=== PATIENT | female | born 1945 | race Caucasian/White ===

== ENCOUNTER 2017-03-14 08:28 | Inpatient (IN) | payer OTHER ==
[2017-01-27 13:22] VITALS: BMI 39.0
--- NOTE | 2017-01-27 14:03 | PAT Medication Instructions ---
Service Date Jan 27, 2017. Current Home Medication List Acetaminophen (Tylenol Arthritis Ext Rel), 650 MG PO Q8H PRN for Pain Acetaminophen/Diphenhydramine (Tylenol Pm), 1 TAB PO HS Alprazolam (Xanax), 0.5 MG PO PRN PRN for Anxiety Aspirin (Aspirin Ec), 81 MG PO QPM Atenolol (Tenormin), 100 MG PO QPM Diltiazem Hcl Ext Rel (Tiazac), 240 MG PO QPM Levalbuterol (Xopenex Hfa), 1 PUFF INH UD PRN for SOB/Wheezing Levothyroxine Sodium (Levothyroxine Sodium), 1 TAB PO DAILYBB Lisinopril (Zestril), 40 MG PO QPM Multivitamin (Multivitamin), 1 TAB PO QA Sertraline (Zoloft), 25 MG PO QPM Simvastatin (Zocor), 10 MG PO QPM Spironolactone (Aldactone), 12.5 MG PO QAM Warfarin Sod (Jantoven), 3 MG PO QPM Warfarin Sod (Jantoven), 2 MG PO QPM Medication Instructions For Your Scheduled Surgery - Check with surgeon/coumadin clinic for instructions: Warfarin Sod (Jantoven), 3 MG PO QPM Warfarin Sod (Jantoven), 2 MG PO QPM - Hold the following medications the morning of surgery: Multivitamin (Multivitamin), 1 TAB PO QA Spironolactone (Aldactone), 12.5 MG PO QAM - Take the following medications the morning of surgery with a sip of water: Levothyroxine Sodium (Levothyroxine Sodium), 1 TAB PO DAILYBB Levalbuterol (Xopenex Hfa), 1 PUFF INH UD PRN for SOB/Wheezing (if needed) Acetaminophen (Tylenol Arthritis Ext Rel), 650 MG PO Q8H PRN for Pain (if needed) Alprazolam (Xanax), 0.5 MG PO PRN PRN for Anxiety (if needed) - Hold the following medications as scheduled the night before surgery: Lisinopril (Zestril), 40 MG PO QPM - Take the following medications as scheduled the night before surgery: Sertraline (Zoloft), 25 MG PO QPM Simvastatin (Zocor), 10 MG PO QPM Levalbuterol (Xopenex Hfa), 1 PUFF INH UD PRN for SOB/Wheezing (if needed) Atenolol (Tenormin), 100 MG PO QPM Diltiazem Hcl Ext Rel (Tiazac), 240 MG PO QPM Acetaminophen (Tylenol Arthritis Ext Rel), 650 MG PO Q8H PRN for Pain (if needed) Acetaminophen/Diphenhydramine (Tylenol Pm), 1 TAB PO HS Alprazolam (Xanax), 0.5 MG PO PRN PRN for Anxiety (if needed) Aspirin (Aspirin Ec), 81 MG PO QPM If you have any questions please call us at [phone] or [phone] or [phone]
[2017-01-27 14:55] LABS: BASO % 0.2 %; BASO ABS # 0.01 K/uL (0-0.2); COMPLETE YES; EOS % 2.3 %; HEMATOCRIT 37.6 % (37-47); LYMPH % 25.2 %; LYMPH ABS # 1.34 K/uL (1.2-3.4); MEAN CORPUSCULAR HEMOGLOBIN 30.3 pg (25-34); MEAN CORPUSCULAR HGB CONC 33.2 g/dl (32-36); MEAN PLATELET VOLUME 9.6 fL (7.4-10.4); MONO % 7.1 %; NEUT % 65.2 %; PLATELET COUNT 202 K/uL (130-400); RED BLOOD COUNT 4.13 M/uL (4.2-5.4); WHITE BLOOD COUNT 5.32 K/uL (4.8-10.8)
[2017-01-27 15:05] LABS: INR 2.6 (0.9-1.1); PARTIAL THROMBOPLASTIN RATIO 1.7; PROTHROMBIN TIME (PATIENT) 28.8 SECONDS (9.0-12.0)
[2017-01-27 16:09] LABS: BUN/CREATININE RATIO 15.1 (10-20); C-REACTIVE PROTEIN 0.79 mg/dl (0-0.29); CALCIUM 10.2 mg/dl (8.5-10.1); CREATININE 1.2 mg/dl (0.60-1.20); POTASSIUM 4.7 mmol/L (3.5-5.1)
--- NOTE | 2017-03-10 19:40 | HISTORY & PHYSICAL EXAMINATION ---
DATE OF ADMISSION: 03/14/2017 CHIEF COMPLAINT: Right knee pain and discomfort. HISTORY OF PRESENT ILLNESS: This is a 71-year-old female who is now a year out from the left knee replacement. The left knee is doing well. She developed increased pain and progressive discomfort in her right knee. She has limited walking tolerance and limited by right knee only. She describes global pain. The more she walks, the more it hurts. It is really affecting her quality of life and ability to maintain an active lifestyle and she would like to have her right knee placed. Very happy with her left knee. PAST MEDICAL HISTORY: Significant for: 1. Atrial fibrillation on Coumadin. 2. Hypertension. 3. Hypothyroidism. 4. Asthma. 5. History of uterine cancer. 6. Elevated cholesterol. 7. Low back pain. 8. Obesity. PAST SURGICAL HISTORY: Include: 1. Left total knee replacement done in 03/15/2016. 2. Hysterectomy for uterine cancer. 3. Breast reduction. ALLERGIES: None. CURRENT MEDICINES: Include: 1. Synthroid 125 mcg a day. 2. Spironolactone 25 mg a day. 3. Tylenol Arthritis. 4. Multivitamin. 5. Fosamax. 6. Lisinopril 40 mg. 7. Zocor 10 mg. 8. Atenolol 100 mg a day. 9. Diltiazem 240 mg a day. 10. Coumadin 3 mg on Monday, Monday, Monday and and 2 mg on Monday, Monday, Monday. 11. Aspirin 81 mg a day. 12. Zoloft 25 mg 13. Tylenol PM for sleep. 14. Xanax 0.5 mg as needed for Anxiety. 15. Xopenex inhaler for wheezing. SOCIAL HISTORY: A 71-year-old female patient from [place]. Lives by herself. FAMILY HISTORY: Noncontributory. REVIEW OF SYSTEMS: Negative for diabetes. Denies any chest pain or shortness of breath. She does have chronic atrial fibrillation. On Coumadin. No other bleeding issues. She is followed by [facility]. REVIEW OF SYSTEMS: Significant for atrial fibrillation. No chest pain, no shortness of breath. No bleeding problems. She is on Coumadin. PHYSICAL EXAMINATION: GENERAL: Reveals a pleasant elderly female, looks to me in pretty good health. HEENT: Benign. NECK: Supple. No lymphadenopathy. LUNGS: Clear to auscultation. HEART: Regular rate and rhythm. ABDOMEN: Soft, nontender, nondistended. EXTREMITIES: Grossly neurovascularly intact except as follows. Examination of the right knee reveals the patient ambulates independently. She has got valgus alignment to her knee. Moderate soft tissue envelope. Range of motion is 0-120. No instability. X-RAYS: X-rays of the right knee revealed advanced lateral compartment DJD. She has complete loss of her lateral joint space. She has subchondral sclerosis. She has cystic changes in the tibial plateau. Diffuse osteopenia. She has got some chondrocalcinosis. ASSESSMENT: A 71-year-old female 1 year out from left knee replacement with advanced right knee degenerative joint disease. She would like to have her right knee replaced. PLAN: We will take her to the operating room and do a right total knee replacement. The risks and benefits of this procedure were explained to the patient including but not limited to DVT, PE, , infection, neurological injury, vascular injury, bleeding problem, pain, limited range of motion, stiffness, failure to relieve incomplete relief of symptoms, need for further surgery in the future, fracture, leg length inequality, nerve palsy, etc. The patient understands and desires to proceed. Informed consent was obtained. She does note to stop her Coumadin 5 days preop. We will need a stat PT and INR on the morning of surgery. She will hold her lisinopril the morning of surgery and take her atenolol. As far as discharge plans, she is hoping to be discharged to [facility]. She went to different facility last time but prefers [facility] I believe. [facility]
[~2017-03-14] VITALS: Ht 160 cm; Wt 100.5 kg
[2017-03-14] VITALS (8 sets, daily range): BP systolic 107–132; BP diastolic 67–79; PULSE 61–77; TEMP 36.2–36.7; O2SAT 94–100; Ht 160 cm; Wt 100.5 kg
[~2017-03-14 08:28] MED LIST: ACET1TAB84 PO; ACETAMINOPHEN 500 MG TAB PO SCH; ALPR-411 PO; ASPI81TA28 PO; ATEN-175 PO; BUPIVACAINE 0.25% 30 ML VIAL ONE; BUPIVACAINE 0.5 % 5 MG/1 ML PF 10ML VIAL ONE; BUPIVACAINE LIPOSOME 266 MG, BUPIVACAINE/EPINEPHRINE INJ 50 ML, SODIUM CHLORIDE 0.9% PF... INFIL SCH; CEFAZOLIN 2000 MG/60 ML D5W 60 ML IV SCH; DILT-115 PO; DIPH-437 PO; FAMOTIDINE 20 MG TAB PO SCH; FENTANYL CITRATE INJ 50 MCG/1 ML 2 ML VIAL ONE; GABAPENTIN 300 MG CAP PO SCH; LACTATED RINGER'S 1000ML 1,000 ML IV SCH; LACTATED RINGER'S 1000ML 500 ML IV ONE; LEVAAER2 INH; LEVO125T4 PO; LIDOCAINE HCL 2% 2 ML VIAL (20MG/ML) ONE; LISI40TA PO; METOCLOPRAMIDE HCL 10 MG TAB PO SCH; MIDAZOLAM HCL 1 MG/ML 2ML VIAL ONE; MULT-506 PO; ONDANSETRON INJ 2 MG/ML 2 ML VIAL ONE; PROPOFOL IV EMULSION 10 MG/ML 20 ML VIAL IV ONE; SCOPOLAMINE 1.5 MG TDSY TD SCH; SERT50TA PO; SIMV10TA2 PO; SPIR25TA PO; TRANEXAMIC ACID INJ 1,000 MG in SODIUM CHLORIDE 0.9% 100ML 100 ML IV SCH; WARF2TAB8 PO; WARF3TAB6 PO
[2017-03-14] MEDS ORDERED: HYDROmorphone INJ 1 MG/ML SYR IV PRN (09:30)
[2017-03-14] MEDS ORDERED: EpHEDrine SULFATE INJ 50 MG/ML AMP IV PRN (09:30)
[2017-03-14] MEDS ORDERED: FENTANYL CITRATE INJ 50 MCG/1 ML 2 ML VIAL IV PRN (09:30)
[2017-03-14] MEDS ORDERED: MEPERIDINE HCL 25 MG/ML CARP IV PRN (09:30)
[2017-03-14] MEDS ORDERED: LABETALOL HCL IV 5 MG/ML 20ML IV PRN (09:30)
[2017-03-14] MEDS ORDERED: ATROPINE SULFATE 0.1 MG/ML 5ML SYR IV PRN (09:30)
[2017-03-14] MEDS ORDERED: ONDANSETRON INJ 2 MG/ML 2 ML VIAL IV PRN ×2 (09:30→13:00)
[2017-03-14 09:47] LABS: INR 1.2 (0.9-1.1); PARTIAL THROMBOPLASTIN RATIO 1.2; PROTHROMBIN TIME (PATIENT) 12.9 SECONDS (9.0-12.0)
--- NOTE | 2017-03-14 10:49 | History & Physical Bridge Note ---
H&P Re-Evaluation Bridge Note: I have examined the patient, reviewed the History & Physical and in the interval since the performance of the History & Physical I have noted the following changes of clinical significance: No changes noted
[2017-03-14] MEDS ORDERED: BACITRACIN 50000 UNIT VIAL ONE (10:58)
[2017-03-14] MEDS ORDERED: BUPIVACAINE LIPOSOME 1/3% 266 MG/20 ML VIAL INFIL ONE (10:58)
[2017-03-14] MEDS ORDERED: SODIUM CHLORIDE 0.9% PF 50 ML VIAL ONE (10:58)
[2017-03-14] MEDS ORDERED: BUPIVACAINE/EPINEPHRINE 0.25% 1:200,000 30 ML VIAL ONE (10:58)
--- NOTE | 2017-03-14 12:53 | [facility] Post Operative Brief Note ---
Immediate Operative Summary Operative Date Mar 14, 2017. Pre-Operative Diagnosis Right knee degenerative joint disease Post-Operative Diagnosis Right knee degenerative joint disease Procedure(s) Performed Right total knee arthroplasty, cemented Surgeon Dr. Isidro [employer] Architect Surgeon(s) Bhavik Zhang PA-C Estimated Blood Loss 300 ml Findings Right Knee DJD Fluids (cc crystalloids) 1100 cc Specimens A: Right knee bone and tissue Drains None Anesthesia Spinal Complication(s) None Disposition Recovery Room / PACU
[2017-03-14] MEDS ORDERED: ALUMINUM/MAGNESIUM/SIMETH (MAALOX MAX) 30 ML UDC PO PRN (13:00)
[2017-03-14] MEDS ORDERED: METOCLOPRAMIDE HCL INJ 5 MG/ML 2 ML VIAL IV PRN (13:00)
[2017-03-14] MEDS ORDERED: BISACODYL 10 MG SUPP PR PRN (13:00)
[2017-03-14] MEDS ORDERED: MAGNESIUM HYDROXIDE SUSP 30 ML UDC PO PRN (13:00)
[2017-03-14] MEDS ORDERED: SILVER SULFADIAZINE 1% CR 50 GM JAR EXT PRN (13:00)
[2017-03-14] MEDS ORDERED: ZOLPIDEM TARTRATE 5 MG TAB PO PRN (13:00)
[2017-03-14] MEDS ORDERED: LEValbuterol HFA 15GM INHALER INH PRN (13:00)
[2017-03-14] MEDS ORDERED: HYDROmorphone INJ 0.5 MG/0.5 ML SYR IV PRN (13:00)
[2017-03-14] MEDS ORDERED: ALPRAZOLAM 0.5 MG TAB PO PRN (13:00)
--- NOTE | 2017-03-14 13:51 | DIAGNOSTIC IMAGING REPORT ---
TWO VIEWS RIGHT KNEE CLINICAL HISTORY: Postoperative examination. FINDINGS: AP and crosstable lateral portable views of the right knee are obtained. A right knee arthroplasty is in near anatomic alignment. There has been undersurface remodeling of the patella. No acute fracture is seen. There are expected postoperative changes around the knee including skin clips, a surgical drain, soft tissue edema, and subcutaneous gas. IMPRESSION: Expected postoperative changes status post right knee arthroplasty. No acute fracture is seen. Electronically signed by: Lam Merino M.D. 03/14/2017 1:50 PM Dictated Date/Time: 03/14/2017 1:49 PM
--- NOTE | 2017-03-14 14:03 | Anesthesiology Progress Note ---
Anesthesia Post Op Note Date & Time Mar 14, 2017 at 14:03 Vital Signs Pain Intensity: 0 Vital Signs Past 12 Hours Date Time Temp Pulse Resp B/P (MAP) Pulse Ox O2 Delivery O2 Flow Rate FiO2 03/14/17 13:40 55 16 107/57 99 Nasal Cannula 2 03/14/17 13:25 36.3 64 16 114/64 99 Nasal Cannula 2 03/14/17 13:15 68 16 95/55 99 Nasal Cannula 2 03/14/17 13:05 68 16 96/60 99 Nasal Cannula 2 03/14/17 12:55 36.4 68 16 83/53 99 Nasal Cannula 2 03/14/17 09:43 36.7 71 20 120/67 95 Room Air Notes Mental Status: alert / awake / arousable, participated in evaluation Pt Amnestic to Procedure: Yes Nausea / Vomiting: adequately controlled Pain: adequately controlled Airway Patency, RR, SpO2: stable & adequate BP & HR: stable & adequate Hydration State: stable & adequate Neuraxial Anesthesia: was administered, sensory block is resolving Anesthetic Complications: no major complications apparent
[2017-03-14] MEDS: D5W AND 1/2NSS + 20MEQ KCL 1,000 ML IV SCH (15:26)
[2017-03-14] MEDS: ACETAMINOPHEN 500 MG TAB PO SCH ×2 (15:27→21:24)
[2017-03-14] MEDS: KETOROLAC TROMETHAMINE 15 MG/ML VIAL IV. SCH ×2 (15:27→21:25)
[2017-03-14] MEDS ORDERED: WARFARIN SOD 5 MG TAB PO ONE (16:00)
[2017-03-14] MEDS: FERROUS GLUCONATE 324 MG TAB PO SCH (18:30)
[2017-03-14] MEDS: CEFAZOLIN IV 2,000 MG in DEXTROSE 5% 50ML 50 ML IV SCH (18:30)
[2017-03-14] MEDS ORDERED: TRANEXAMIC ACID INJ 1,000 MG in SODIUM CHLORIDE 0.9% 100ML 100 ML IV SCH (19:00)
[2017-03-14] MEDS: SIMVASTATIN 10 MG TAB PO SCH (21:21)
[2017-03-14] MEDS: SERTRALINE HCL 50 MG TAB PO SCH (21:21)
[2017-03-14] MEDS: LISINOPRIL 40 MG TAB PO SCH (21:22)
[2017-03-14] MEDS: DILTIAZEM HCL 120 MG EXT REL CAP PO SCH (21:22)
[2017-03-14] MEDS: DOCUSATE SODIUM 100 MG CAP PO SCH (21:23)
[2017-03-14] MEDS: SENNA 8.6 MG TAB PO SCH (21:23)
[2017-03-14] MEDS: ASPIRIN 81 MG ECTAB PO SCH (21:23)
[2017-03-14] MEDS ORDERED: FRRG PO (21:49)
[2017-03-14] MEDS ORDERED: ULT50X PO (21:49)
[2017-03-14] MEDS ORDERED: ACET-24 PO (21:49)
--- NOTE | 2017-03-14 21:52 | Discharge Instructions ---
Discharge Instructions Date of Service Mar 14, 2017. Admission Reason for Admission: Right Knee Degenerative Joint Disease Discharge Discharge Diagnosis / Problem: Right Knee Replacement Discharge Goals Goal(s): Decrease discomfort, Improve function, Increase independence, Improve disease control, Therapeutic intervention Activity Recommendations Activity Level: Assistance Required Therapies: Physical Therapy, Occupational Therapy Weightbearing Status: Right weightbearing . Additional Information Patient informed of condition: Yes Advance Directives: Yes DNR: No Level of Care: Skilled Communicable Disease: No Prognosis: Improving Instructions / Follow-Up Instructions / Follow-Up ACTIVITY RECOMMENDATIONS: Physical Therapy: * You will go to physical therapy three times each week for four to six weeks after your surgery in order to regain your knee range of motion and to retrain your knee to work properly. * It is just as important to make sure you are getting your knee perfectly straight as it is to regain your knee bend. * Taking a pain pill an hour before therapy can help you have a more productive and comfortable therapy session. Home Exercise: * You were shown a series of exercises (heel props, heel slides, etc.) in the hospital. Do these exercises three to four times each day including the exercises you were shown in physical therapy. Walking: * Get up and walk several times each day. For the first four weeks, try not to stand or walk for more than one hour at a time. If you do stand or walk for more than one hour, you will not hurt anything, but your knee and leg will likely swell. * As you feel comfortable, you may change from the walker or crutches to a cane and then to independent walking. MEDICATIONS: New Medicine: * You will likely be taking one or more of these medications: 1. Tramadol - A quick and shorter-acting pain medication. Take one to two tablets every four to six hours to lessen your pain. 2. Iron Sulfate - Take two times each day for the month after surgery to help you replace the blood lost during surgery. 3. Coumadin - Thins your blood to lessen the chance of forming a blood clot. The dose of this is different for each person and is based on your blood tests that are done every Monday and . * The most common side effects of pain medicine and iron are nausea and constipation. If nausea or constipation is too much of a problem or if you have any questions about your new medicines or doses, call [facility] at . We will try to help you manage these issues. VERY IMPORTANT TO READ AND REVIEW" Pain: * The immediate post-operative period after knee replacement surgery is often quite painful. * You are given a prescription for pain medicine. You should take it, as directed, when you need it, especially before physical therapy and before going to bed. Pain that interferes with sleep is very common and can last several months. * You will likely need pain medicine for the first four to six weeks. It will not stop all of the pain. The pain will lessen and as you feel better, you may change to milder pain medicine such as Tylenol. * The most common side effects of pain medicine are nausea and constipation, so don't take more than you need. SPECIAL CARE INSTRUCTIONS: TEDs/Elastic Stockings: * The white elastic stockings help limit swelling and prevent blood clots from forming in your legs. The more you wear them, the more they work. * Wear them for six weeks after knee replacement surgery and four weeks after partial knee replacement. Prevention of Infection: * Take antibiotics one hour before any dental cleaning, dental work, urological procedure, gastrointestinal procedure or any invasive surgery in order to prevent your new joint from getting infected. * You may get the antibiotics from the doctor performing the procedure or you may call our office at before and we will call in a prescription to the pharmacy of your choice. Things to Watch For: * Drainage from the incision site that occurs more than one week after your surgery. * Severely increased knee/leg pain or swelling. * Increased redness at the incision site. * Fever above 102 degrees Fahrenheit. * Unusual chest pain or shortness of breath. * Unusual pain or burning with urination. Call [facility] at with any of the above problems or if you have any questions about your medicines or recovery. FOLLOW UP VISIT: Make an appointment to see your doctor for approximately two weeks after surgery for a progress check and staple removal by calling the office at . Current Hospital Diet Patient's current hospital diet: Regular Diet Discharge Diet Recommended Diet: Regular Diet Procedures Procedures Performed: Right total knee arthroplasty, cemented Pending Studies Studies pending at discharge: no Medical Emergencies . Who to Call and When: Medical Emergencies: If at any time you feel your situation is an emergency, please call 911 immediately. . Non-Emergent Contact Non-Emergency issues call your: Surgeon . . "Provider Documentation" section prepared by Mic Isidro. . Core Measure Problem Core Measures: None
--- NOTE | 2017-03-14 22:46 | PROGRESS NOTE ---
DATE: 03/14/2017 SUBJECTIVE: A 71-year-old female postop from a right knee replacement. She is doing well. Not much pain at all yet. No chest pain or shortness of breath. Not feeling dizzy or lightheaded. OBJECTIVE: VITAL SIGNS: Temperature 36.4. Vital signs stable. PHYSICAL EXAMINATION: GENERAL: This is a pleasant elderly female. She is sitting up in bed, looks pretty comfortable. LUNGS: Clear to auscultation. HEART: Irregularly irregular rhythm. EXTREMITIES: Rate is normal. ABDOMEN: Soft, nontender, nondistended. EXTREMITIES: Grossly neurovascularly intact except as follows. Examination of the right leg reveals the leg to be well aligned. Dressing is clean, dry and intact. She can dorsiflex and plantarflex her foot appropriately. She is just starting to get the function back in her leg. She is neurologically intact. X-RAYS: X-rays of the right knee from recovery room reviewed. It shows a right cemented posterior stabilized total knee arthroplasty. Components looked to be in good position. No signs of problems. ASSESSMENT: A 71-year-old female postop from a right knee replacement, doing pretty well. Pain is controlled. She is neurologically intact. Nerve function is just returning. She does have a history of atrial fibrillation and on Coumadin. PLAN: 1. DVT prophylaxis including thigh high TEDs, SCDs. We will redose her on Coumadin. We will bolus her today and the goal will be to keep her INR between 2 and 3, but on the lower side. 2. PT, OT. Weightbearing as tolerated. Right total knee protocol. 3. Pain control, doing well with current pain regimen. We have to be careful to limit narcotic use due to side effects. 4. IV antibiotics x24 hours. 5. Disposition. Plan to discharge to a correction facility once adequately recovered. She may need a 3-night stay. She is hoping to go to [place], but has alternatives if that does not work out.
--- NOTE | 2017-03-14 23:26 | OPERATIVE REPORT ---
DATE OF OPERATION: 03/14/2017 SURGEON: Mic Isidro MD. SAFETY COMPLIANCE SPECIALIST: BRANT Elliott. PREOPERATIVE DIAGNOSIS: Right knee degenerative joint disease. POSTOPERATIVE DIAGNOSIS: Same. PROCEDURE PERFORMED: Right cemented posterior stabilized total knee arthroplasty. COMPLICATION: None. ESTIMATED BLOOD LOSS: 50 mL FLUID REPLACEMENT: 1100 mL crystalloid fluid replacement. TOURNIQUET TIME: 54 minutes at 300 mmHg. ANESTHESIA: Spinal with adductor canal block. DRAINS: None. SPECIMEN: Right knee sent for pathology. OPERATIVE INDICATIONS: The patient is a 71-year-old female who has had a long history of bilateral knee pain and discomfort. She has been through extensive conservative care. She underwent a left knee replacement a year ago with an excellent result. She elected to proceed with right total knee arthroplasty. OPERATIVE FINDINGS: Operative findings revealed advanced right knee DJD. She had grade 4 [id number] disease in all compartments, most severe on the lateral side. She had eburnation of the lateral femoral condyle and lateral tibial plateau. She had diffuse osteopenia on the medial side. Moderate size joint effusion. She had a valgus alignment to her knee. OPERATIVE IMPLANTS: Operative implants consisted of: 1. Biomet Vanguard size 65 right posterior stabilized femoral component. 2. Biomet size 71 tibial tray. 3. A 12 mm posterior stabilized polyethylene insert. 4. A 31 x 8 all poly patella. OPERATIVE PROCEDURE: The patient was taken to the operating room, identified and placed on the operating table in supine position. All contact areas were appropriately padded. IV antibiotics provided by anesthesia team. A spinal anesthetic and adductor canal block provided in the holding area. Regalado catheter was placed in sterile fashion. A right thigh tourniquet was then placed and the right lower extremity was then prepped and draped in the usual sterile fashion. The right leg was elevated and exsanguinated with Esmarch and tourniquet was placed at 300 mmHg. An anterior approach to the right knee was then performed through a longitudinal incision centered over the patella. Sharp dissection was carried out through the subcutaneous tissues down to the level of the extensor mechanism. A medial parapatellar arthrotomy incision was made. Some subperiosteal dissection was carried out medially. The fat pad was resected from beneath the patellar tendon. Lateral patellofemoral ligament was released. The patella was everted and knee was flexed. The osteophytes were taken off the distal femur. The ACL and PCL were then released from the distal femur and the tibia subluxated anteriorly. The external tibial alignment jig was then placed on the anterior face of the tibia and adjusted 12 mm medially. Proximal tibial cut was made to remove about 4-5 mm from the medial side. Tibia was then sized to a size 71. Attention was then drawn to the femur. Distal femur was entered with a sharp drill. Intramedullary canal was suctioned. A right 5-degree valgus cutting guide was placed. Distal femoral cutting block was pinned in place. Distal femoral cut was made to take an additional 3 mm of bone off the distal femur. The knee was brought out into full extension. The extension gap was equal, so I did not do a lateral release. The knee was flexed. The femur was then sized to a size 65. The AP cutting block was pinned parallel to the epicondylar axis which was 5 degrees of external rotation. The anterior cut, anterior chamfer cut, posterior cut, posterior chamfer cuts were made. Box cutting guide was placed and adjusted slightly lateral and the box cut was made. The knee was flexed. The remnants of the medial and lateral menisci were excised. The osteophytes were taken off the posterior aspect of the femur. Trial femoral component was placed. The tibial tray was pinned in maximum external rotation. The drill and stem punch were used to create defect in the proximal tibia for the tibial tray. The knee was then trialed and the 12 mm insert fit most appropriately. Attention was then drawn to the patella. The patella was cleaned of all soft tissues. Patella thickness measured 20 mm and was cut down to 13. It was sized to a size 31 patella. Lug holes were drilled for 31 patella. Lateral osteophyte was removed. Patella button was placed. Knee was taken through range of motion and the patella tracked nicely with no thumbs test. Attention was then drawn toward placement of permanent components. All trial components were removed. Bone plug was placed in the distal femur to limit blood loss. A double batch of Palacos G cement was mixed. A right size 65 posterior stabilized femoral component, a size 71 tibial tray, a 12 mm posterior stabilized polyethylene insert, and a 31 x 8 all poly patella were then cemented in place. The knee was brought out into full extension until the cement hardened. A final cement check was then performed. The pericapsular tissues were injected with a total of 100 mL of a combination of 20 mL of Exparel, 30 mL of normal saline, 50 mL of 0.25% Marcaine with epinephrine. The patient did receive 1 gram of tranexamic acid. The tourniquet was then let down for a tourniquet time of 54 minutes. Hemostasis was assured with use of electrocautery. The extensor mechanism was then closed with a combination of #1 PDS suture and #1 Vicryl suture in a [id number] fashion. The extensor mechanism was checked and found to be intact. Subcutaneous tissues were then closed with 2-0 Dexon suture in a buried interrupted fashion. Skin was closed skin viviane. Leg was then cleaned and dried, and a sterile dressing of Xeroform, 4 x 4's, sterile cast padding and Aamir bandage was applied. The patient then transferred to the recovery room in stable condition. The patient tolerated the procedure well with no complications. All needle and sponge counts were correct at the end of the operation. I attest to the content of the Intraoperative Record and any orders documented therein. Any exception s are noted below.
[2017-03-15] MEDS: D5W AND 1/2NSS + 20MEQ KCL 1,000 ML IV SCH ×2 (00:30→11:20)
[2017-03-15] MEDS: CEFAZOLIN IV 2,000 MG in DEXTROSE 5% 50ML 50 ML IV SCH (01:56)
[2017-03-15] MEDS: KETOROLAC TROMETHAMINE 15 MG/ML VIAL IV. SCH (03:49)
[2017-03-15 04:00] VITALS: BP 98/52; PULSE 60; TEMP 36.3; O2SAT 96
[2017-03-15] MEDS: LEVOTHYROXINE 125 MCG TAB PO SCH (05:44)
[2017-03-15] MEDS: ACETAMINOPHEN 500 MG TAB PO SCH ×3 (05:44→21:30)
[2017-03-15 06:46] LABS: HEMATOCRIT 33.6 % (37-47); MEAN CELL VOLUME 92.3 fL (80-100); MEAN CORPUSCULAR HEMOGLOBIN 30.5 pg (25-34); MEAN PLATELET VOLUME 9.9 fL (7.4-10.4); PLATELET COUNT 190 K/uL (130-400); RED BLOOD COUNT 3.64 M/uL (4.2-5.4); WHITE BLOOD COUNT 7.52 K/uL (4.8-10.8)
[2017-03-15 06:53] LABS: INR 1.3 (0.9-1.1); PROTHROMBIN TIME (PATIENT) 13.8 SECONDS (9.0-12.0)
[2017-03-15 07:18] LABS: BUN/CREATININE RATIO 16.5 (10-20); CALCIUM 9.2 mg/dl (8.5-10.1); CREATININE 1.4 mg/dl (0.60-1.20); POTASSIUM 5.1 mmol/L (3.5-5.1)
--- NOTE | 2017-03-15 07:28 | Orthopedic Progress Note ---
Orthopedic Progress Note Date of Service Mar 15, 2017. Subjective Additional Notes: POD #1 from RIght TKA. Really hasn't had pain yet. She did some exercises yesterday and ambulated with walker to restroom. No chest pain, SOB, N/v. Objective dressing C/D/I, A&O x3, toes mobile Date Time Temp Pulse Resp B/P (MAP) Pulse Ox O2 Delivery O2 Flow Rate FiO2 03/15/17 04:00 36.3 60 14 98/52 (67) 96 Room Air 03/14/17 23:29 36.3 03/14/17 23:25 77 18 108/69 (82) 96 Room Air 03/14/17 23:15 Room Air 03/14/17 21:28 74 115/72 (86) 03/14/17 19:24 36.4 63 16 112/68 (83) 94 Room Air 03/14/17 15:56 61 16 132/79 (96) 100 Nasal Cannula 2.0 03/14/17 14:34 77 16 114/75 (88) 99 Nasal Cannula 2.0 03/14/17 13:50 Nasal Cannula 2.0 03/14/17 13:50 36.2 68 16 107/71 (83) 99 Nasal Cannula 2.0 03/14/17 13:50 Nasal Cannula 2.0 03/14/17 13:40 55 16 107/57 99 Nasal Cannula 2 03/14/17 13:25 36.3 64 16 114/64 99 Nasal Cannula 2 03/14/17 13:15 68 16 95/55 99 Nasal Cannula 2 03/14/17 13:05 68 16 96/60 99 Nasal Cannula 2 03/14/17 12:55 36.4 68 16 83/53 99 Nasal Cannula 2 03/14/17 09:43 36.7 71 20 120/67 95 Room Air Laboratory Results 24 Hours: Test 03/14/17 09:05 03/15/17 06:18 Prothromb Time International Ratio 1.2 1.3 Prothrombin Time 12.9 SECONDS 13.8 SECONDS Hematocrit 33.6 % Hemoglobin 11.1 g/dL Assessment & Plan Assessment: POD #1 from Right TKA Discharge Planning Discharge Planning: custodial facility (Hoping to be discharged to [place] ) Pain Management: other (Continue current pain management. Will discontinue Toradol as her BUN/Cr is elevated. ) DVT Prophylaxis: TEDs, SCDs, Coumadin Therapy: Physical Therapy, Occupational Therapy Discharge Planning Notes: Nicole was seen and examined by Dr. Isidro today as well.
[2017-03-15 07:33] VITALS: BP 115/72; PULSE 51; TEMP 36.6; O2SAT 96
[2017-03-15] MEDS: PANTOprazole SOD 40 MG TAB PO SCH (08:33)
[2017-03-15] MEDS: DOCUSATE SODIUM 100 MG CAP PO SCH ×2 (08:33→21:26)
[2017-03-15] MEDS: FERROUS GLUCONATE 324 MG TAB PO SCH ×3 (08:33→18:17)
[2017-03-15] MEDS: MULTIVITAMIN TAB PO SCH (08:33)
[2017-03-15 12:00] VITALS: BP 121/79; PULSE 73; TEMP 37; O2SAT 95
[2017-03-15] MEDS: TRAMADOL HCL 50 MG TAB PO PRN ×3 (12:35→22:32)
--- NOTE | 2017-03-15 13:30 | Anesthesiology Progress Note ---
Anesthesia Post Op Note Date & Time Mar 15, 2017 at 13:30 Vital Signs Vital Signs Past 12 Hours Date Time Temp Pulse Resp B/P (MAP) Pulse Ox O2 Delivery O2 Flow Rate FiO2 03/15/17 12:00 37.0 73 20 121/79 (93) 95 Room Air 03/15/17 07:33 36.6 51 19 115/72 (86) 96 Room Air 03/15/17 07:15 Room Air 03/15/17 04:00 36.3 60 14 98/52 (67) 96 Room Air Notes Neuraxial Anesthesia: sensory block resolved
[2017-03-15 15:08] VITALS: BP 125/86; PULSE 72; TEMP 37.1; O2SAT 97
[2017-03-15] MEDS ORDERED: WARFARIN SOD 5 MG TAB PO ONE (16:00)
[2017-03-15] MEDS: SENNA 8.6 MG TAB PO SCH (21:00)
[2017-03-15 21:25] VITALS: BP 125/85; PULSE 80
[2017-03-15] MEDS: SERTRALINE HCL 50 MG TAB PO SCH (21:26)
[2017-03-15] MEDS: ASPIRIN 81 MG ECTAB PO SCH (21:27)
[2017-03-15] MEDS: LISINOPRIL 40 MG TAB PO SCH (21:28)
[2017-03-15] MEDS: DILTIAZEM HCL 120 MG EXT REL CAP PO SCH (22:31)
[2017-03-15] MEDS: SIMVASTATIN 10 MG TAB PO SCH (22:31)
[2017-03-15 23:30] VITALS: BP 114/72; PULSE 114; TEMP 37.1; O2SAT 96
[2017-03-16 00:51] VITALS: PULSE 88
[2017-03-16] MEDS: LEVOTHYROXINE 125 MCG TAB PO SCH (05:27)
[2017-03-16] MEDS: ACETAMINOPHEN 500 MG TAB PO SCH ×2 (05:28→13:20)
[2017-03-16 06:37] VITALS: BP 110/69; PULSE 77; TEMP 36.8; O2SAT 94
[2017-03-16 07:15] LABS: INR 1.7 (0.9-1.1); PROTHROMBIN TIME (PATIENT) 18.7 SECONDS (9.0-12.0)
--- NOTE | 2017-03-16 07:34 | Orthopedic Progress Note ---
Orthopedic Progress Note Date of Service Mar 16, 2017. Subjective Additional Notes: POD #2 from Right TKA . She has a bit more pain with this knee than the other after that surgery. It began to hurt some around noon yesterday. But is controlled with pain medication. No chest pain or SOB. no other complaints. Objective calves soft nontender, N/V intact, dressing C/D/I, incision C/D/I, A&O x3, toes mobile Date Time Temp Pulse Resp B/P (MAP) Pulse Ox O2 Delivery O2 Flow Rate FiO2 03/16/17 06:37 36.8 77 16 110/69 (83) 94 Room Air 03/16/17 00:51 88 03/15/17 23:53 Room Air 03/15/17 23:30 37.1 114 16 114/72 (86) 96 Room Air 03/15/17 21:25 80 125/85 (98) 03/15/17 15:25 Room Air 03/15/17 15:08 37.1 72 16 125/86 (99) 97 Room Air 03/15/17 12:00 37.0 73 20 121/79 (93) 95 Room Air 03/15/17 07:33 36.6 51 19 115/72 (86) 96 Room Air Laboratory Results 24 Hours: Test 03/16/17 06:16 Prothromb Time International Ratio 1.7 Prothrombin Time 18.7 SECONDS Assessment & Plan Assessment: POD #12 from Right [facility] Discharge Planning Discharge Planning: [facility] (Hoping to be discharged to [facility]. Apparently no beds available at [facility]. She is waiting for a bed possibly at [facility]. ) Pain Management: other (Continue current pain management. Will discontinue Toradol as her BUN/Cr is elevated. ) DVT Prophylaxis: TEDs, SCDs, Coumadin Therapy: Physical Therapy, Occupational Therapy
[2017-03-16] MEDS: FERROUS GLUCONATE 324 MG TAB PO SCH ×2 (08:10→12:23)
[2017-03-16] MEDS: MULTIVITAMIN TAB PO SCH (08:10)
[2017-03-16] MEDS: PANTOprazole SOD 40 MG TAB PO SCH (08:10)
[2017-03-16] MEDS: DOCUSATE SODIUM 100 MG CAP PO SCH (08:38)
[2017-03-16 10:04] VITALS: BP 110/69; PULSE 77; TEMP 36.8; O2SAT 94
[2017-03-16] MEDS ORDERED: WARFARIN SOD 3 MG TAB PO SCH (16:00)
== END 2017-03-16 15:03 | DRG 470 ==
LOC: C.ACU 08:28 → C.3E 08:30 → ENRESERV 13:30
PROVIDERS: ADMIT Orthopaedic Surgery Sports Medicine; ATTEND Orthopaedic Surgery Sports Medicine
PROC: 0SRC0J9 Replacement of Right Knee Joint with Synthetic Substitute, Cemented, Open Approach (ICD-10-PCS; principal; 2017-03-14 11:00)
DX: M17.11 Unilateral primary osteoarthritis, right knee (principal); I48.91 Unspecified atrial fibrillation; I10 Essential (primary) hypertension; E03.9 Hypothyroidism, unspecified; J45.909 Unspecified asthma, uncomplicated; E66.9 Obesity, unspecified; Z96.652 Presence of left artificial knee joint; Z79.01 Long term (current) use of anticoagulants; Z79.82 Long term (current) use of aspirin